=== PATIENT | male | born 1955 | race Caucasian/White ===

== ENCOUNTER 2017-05-28 10:07 | Outpatient (CLI) | payer BC ==
[2017-05-28 10:59] LABS: Anion Gap 12 mmol/L (10-20); BUN (Urea Nitrogen) 15 mg/dL (8.4-25.7); Calc. Creatinine Clearance 0 mL/min (70-130); Carbon Dioxide 29 mmol/L (23-31); Chloride 102 mmol/L (98-107); Estimated GFR-MDRD 73; Glucose 90 mg/dL (80-115); Potassium 3.5 mmol/L (3.5-5.1); Sodium 139 mmol/L (136-145)
[2017-05-28 11:13] LABS: Bilirubin Negative (Negative); Blood, Urine Negative (Negative); Clarity CLEAR (Clear); Glucose, Urine (Dipstick) Negative (Negative); Leukocyte Negative (Negative); Nitrite Negative (Negative); Protein, Urine (Dipstick) Negative (Neg-Trace); Specific Gravity, Urine 1.015 (1.002-1.036); Urobilinogen 0.2 mg/dL (0.2-1.0)
--- NOTE | 2017-05-28 11:17 | RAD ---
ABDOMEN ONE VIEW: History: Benign prostatic hyperplasia with urinary tract symptoms. Comparison: 01-21-17 FINDINGS: Right upper quadrant and right lower quadrant surgical clips. No dilated air filled loops of large or small bowel. There is a punctate calcification projecting over the left and right superior renal pelvis. IMPRESSION: Punctate bilateral renal calculi. POS: [facility]
[2017-05-28 11:18] LABS: Bacteria/HPF None Seen HPF (None Seen); Hyaline Casts/LPF 0-3 HYALINE CAST LPF (0-3 Hyaline); RBC/HPF None Seen HPF (0-3); Squamous Epithelial None Seen HPF (0-3); WBC/HPF None Seen HPF (0-3)
== END 2017-05-28 10:08 | disposition home or self-care (01) ==
LOC: RAD 10:07
PROVIDERS: ATTEND Urology
DX: N40.1 Benign prostatic hyperplasia with lower urinary tract symptoms (principal); N20.0 Calculus of kidney
CPT/HCPCS: 36415; 74018; 80048; 81001; 87086

== ENCOUNTER 2018-07-08 09:39 | Outpatient (CLI) | payer BC ==
--- NOTE | 2018-07-08 10:08 | RAD ---
KUB: Comparison: 05-28-17 History: Renal calculus. FINDINGS: Single view of the abdomen shows a nonspecific, nonobstructed bowel gas pattern. No calcifications ar e seen over the right renal shadow but evaluation is limited secondary to overlying stool. There may be small calcifications projecting over the midportion of the left kidney measuring up to 3 mm in siz e. No calcifications are seen along the course of the ureters. IMPRESSION: Possible small left renal calcifications. POS: [facility]
[2018-07-08 10:29] LABS: Bilirubin Negative (Negative); Blood, Urine Negative (Negative); Clarity CLEAR (Clear); Glucose, Urine (Dipstick) Negative (Negative); Leukocyte Negative (Negative); Nitrite Negative (Negative); Protein, Urine (Dipstick) Negative (Neg-Trace); Specific Gravity, Urine 1.014 (1.002-1.036)
[2018-07-08 10:38] LABS: Bacteria/HPF None Seen HPF (None Seen); Hyaline Casts/LPF 0-3 HYALINE CAST LPF (0-3 Hyaline); RBC/HPF 0-3 HPF (0-3); Squamous Epithelial None Seen HPF (0-3); WBC/HPF None Seen HPF (0-3)
[2018-07-08 10:47] LABS: Anion Gap 13 mmol/L (10-20); BUN (Urea Nitrogen) 16 mg/dL (8.4-25.7); Calc. Creatinine Clearance 0 mL/min (70-130); Calcium 9.8 mg/dL (7.8-10.44); Carbon Dioxide 28 mmol/L (23-31); Chloride 102 mmol/L (98-107); Estimated GFR-MDRD 61; Glucose 89 mg/dL (80-115); Potassium 3.6 mmol/L (3.5-5.1); Sodium 139 mmol/L (136-145)
== END 2018-07-08 09:40 | disposition home or self-care (01) ==
LOC: RAD 09:39
PROVIDERS: ATTEND Urology
DX: Z12.5 Encounter for screening for malignant neoplasm of prostate (principal); N20.0 Calculus of kidney; R35.0 Frequency of micturition
CPT/HCPCS: 74018; 80048; 81001; 87086

== ENCOUNTER 2019-04-21 10:47 | Outpatient (CLI) | payer BC ==
[2019-04-21 12:42] LABS: Anion Gap 13 mmol/L (10-20); BUN (Urea Nitrogen) 15 mg/dL (8.4-25.7); Calc. Creatinine Clearance 0 mL/min (70-130); Calcium 9.4 mg/dL (7.8-10.44); Carbon Dioxide 28 mmol/L (23-31); Chloride 102 mmol/L (98-107); Estimated GFR-MDRD 73; Glucose 103 mg/dL (80-115); Potassium 3.9 mmol/L (3.5-5.1); Sodium 139 mmol/L (136-145)
[2019-04-21 12:43] LABS: Bilirubin Negative (Negative); Blood, Urine Negative (Negative); Clarity Clear (Clear); Glucose, Urine (Dipstick) Normal (Negative); Leukocyte Negative Leu/uL (Negative); Nitrite Negative (Negative); Protein, Urine (Dipstick) Negative (Neg-Trace); Urobilinogen Normal mg/dL (Less than 2)
--- NOTE | 2019-04-21 13:09 | RAD ---
KUB INDICATION: Renal calculus COMPARISON: July 08, 2018 FINDINGS: Bowel gas: Nonspecific but without overt appearance of obstruction. Lung bases: Clear. Additional findings: Left nephrolithiasis is stable. No suspicious calcification is seen along the ex pected course of the renal collecting system. Surgical clips are again seen within the right lower quadrant and right upper quadrant of the abdomen. There is a mild amount retained stool within the co sung. Retained stool slightly limits evaluation of the right renal shadow. Osseous structures: No acute osseous abnormality is demonstrated. IMPRESSION: 1. Stable left nephrolithiasis.
[2019-04-21 15:46] LABS: Bacteria/HPF None Seen HPF (None Seen); Bilirubin Negative (Negative); Blood, Urine Negative (Negative); Clarity Clear (Clear); Glucose, Urine (Dipstick) Normal (Negative); Leukocyte Negative Leu/uL (Negative); Nitrite Negative (Negative); Protein, Urine (Dipstick) Negative (Neg-Trace); RBC/HPF 0-3 HPF (0-3); Squamous Epithelial None Seen HPF (0-3); Urobilinogen Normal mg/dL (Less than 2); WBC/HPF 0-3 HPF (0-3)
[2019-04-21 15:48] LABS: Urine Culture Reflex No No
== END 2019-04-21 10:48 | disposition home or self-care (01) ==
LOC: RAD 10:47
PROVIDERS: ATTEND Urology
DX: Z12.5 Encounter for screening for malignant neoplasm of prostate (principal); N20.0 Calculus of kidney; R35.0 Frequency of micturition; N40.1 Benign prostatic hyperplasia with lower urinary tract symptoms
CPT/HCPCS: 36415; 74018; 80048; 81001; 81003; G0103

== ENCOUNTER 2020-02-23 09:05 | Outpatient (CLI) | payer OTHER ==
--- NOTE | 2020-02-23 10:48 | MRI ---
MRI OF RIGHT KNEE PERFORMED WITHOUT CONTRAST ENHANCEMENT: HISTORY: Right knee pain. FINDINGS: The anterior as well as posterior cruciate ligaments are intact. The lateral meniscus has a normal shape and appearance. There is a posterior horn medial meniscus te ar which appears to have more of a SLAP-type orientation. The medial as well as lateral collateral ligaments and iliotibial band regions are unremarkable. 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 The medial and lateral patellar retinaculum and quadriceps an patellar tendons are normal. IMPRESSION: 1. Posterior horn medial meniscus tear. Associated articular cartilage loss of the medial femoral c ondyles noted. 2. 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 POS: [facility]
== END 2020-02-23 09:06 | disposition home or self-care (01) ==
LOC: BICMRI 09:05
PROVIDERS: ATTEND Orthopaedic Surgery
DX: S83.241A Other tear of medial meniscus, current injury, right knee, initial encounter (principal); M25.561 Pain in right knee; M23.91 Unspecified internal derangement of right knee; M17.11 Unilateral primary osteoarthritis, right knee

== ENCOUNTER 2020-05-25 09:19 | Outpatient (CLI) | payer OTHER ==
--- NOTE | 2020-05-25 11:29 | RAD ---
EXAM: XR Abdomen 1 View/KUB PROVIDED CLINICAL HISTORY: Nephrolithiasis COMPARISON: 04/21/2019 FINDINGS: The abdominal bowel gas pattern is nonspecific. Surgical clips overlie the right abdomen. The left re nal shadow is predominantly obscured by bowel content. There is a tiny radiodensity projecting cranial to the left L4 transverse process. The osseous structures demonstrate no acute findings. IMPRESSION: Tiny radiodensity overlying the left paravertebral region. Correlate with concerns for ureteral calcu judith.
== END 2020-05-25 09:20 | disposition home or self-care (01) ==
LOC: RAD 09:19
PROVIDERS: ATTEND Urology
DX: N20.0 Calculus of kidney (principal)
CPT/HCPCS: 74018

== ENCOUNTER 2020-06-14 14:01 | Outpatient (CLI) | payer OTHER ==
--- NOTE | 2020-06-14 14:55 | CT ---
Exam: Abdomen CT without contrast Pelvic CT without contrast HISTORY: Previous appendectomy and cholecystectomy. Flank pain. COMPARISON: 03/13/2016 FINDINGS: Abdomen CT: Lung bases:Clear Heart size: Normal heart size Aorta: Normal caliber aorta. No periaortic fat stranding Solid organs: Limited evaluation by the absence of IV contrast. Grossly no solid organ abnormality Lymph nodes: No gastrohepatic, retrocrural or periportal lymphadenopathy Gallbladder: Surgically absent Mesentery: No mass, lymphadenopathy, free air or free fluid Kidneys: Bilateral nonobstructing 1 to 2 mm intrarenal calculi. Bilaterally no obstructive uropathy Alimentary canal: Limited evaluation of the alimentary canal by the lack of contrast. No bowel obstru ction. Normal ileocecal junction. Appendix is surgically absent. Scattered fecal material in a nondistended, nondilated colon. Extensive diverticula in the left hemicolon. There is evidence of mil d diverticulitis involving the mid sigmoid colon (axial image 57, series 2 and sagittal image 70, series 5) CT PELVIS: No mass, adenopathy, free air or free fluid. Mild enlarged prostate gland Urinary bladder: Unremarkable. Osseous structures: No lytic or blastic lesions IMPRESSION: 1. Nonobstructing bilateral intrarenal calculi. No evidence of obstructive uropathy. 2. Mild inflammatory changes involving the mid sigmoid colon. Possibility of diverticulitis is raised . Results of study conveyed to Dr. Coreas via [employer] 06/14/2020 at 2:54 PM Code CR Transcribed Date/Time: 06/14/2020 3:33 PM
== END 2020-06-14 14:02 | disposition home or self-care (01) ==
LOC: BICCT 14:01
PROVIDERS: ATTEND Urology
DX: N20.0 Calculus of kidney (principal); K52.9 Noninfective gastroenteritis and colitis, unspecified
CPT/HCPCS: 74176

== ENCOUNTER 2020-10-22 07:32 | Outpatient (CLI) | payer OTHER | END 2020-10-22 07:33 | disposition home or self-care (01) | LOC: RAD 07:32 | PROVIDERS: ATTEND Urology | DX: N20.0 Calculus of kidney (principal); Z12.5 Encounter for screening for malignant neoplasm of prostate; N40.1 Benign prostatic hyperplasia with lower urinary tract symptoms; R35.0 Frequency of micturition; N43.40 Spermatocele of epididymis, unspecified | CPT/HCPCS: 74018 ==

== ENCOUNTER 2021-05-09 07:35 | Outpatient (CLI) | payer MEDICARE, OTHER | END 2021-05-09 07:36 | disposition home or self-care (01) | LOC: TBSIIMAG 07:35 | PROVIDERS: ATTEND Orthopaedic Surgery | DX: M23.203 Derangement of unspecified medial meniscus due to old tear or injury, right knee (principal) ==

== ENCOUNTER 2021-07-22 12:09 | Outpatient (CLI) | payer MEDICARE, OTHER | END 2021-07-22 12:10 | disposition home or self-care (01) | LOC: LABBT 12:09 | PROVIDERS: ATTEND Orthopaedic Surgery | DX: Z01.818 Encounter for other preprocedural examination (principal); S83.241A Other tear of medial meniscus, current injury, right knee, initial encounter; E78.1 Pure hyperglyceridemia | CPT/HCPCS: 71046; 93005; 93010 ==

== ENCOUNTER 2021-09-23 09:01 | Outpatient (CLI) | payer MEDICARE, OTHER | END 2021-09-23 09:02 | disposition home or self-care (01) | LOC: SCSMRI 09:01 | PROVIDERS: ATTEND Orthopaedic Surgery | DX: M75.121 Complete rotator cuff tear or rupture of right shoulder, not specified as traumatic (principal) ==

== ENCOUNTER 2022-03-27 10:24 | Outpatient (CLI) | payer MEDICARE, OTHER ==
[2022-03-27 13:16] LABS: PTT 26.9 sec (22.0-33.0)
[2022-03-27 13:18] LABS: Anion Gap 15 mmol/L (10-20); BUN (Urea Nitrogen) 17 mg/dL (8.4-25.7); Calc. Creatinine Clearance 0 mL/min (70-130); Calcium 9.5 mg/dL (7.8-10.44); Carbon Dioxide 24 mmol/L (23-31); Chloride 105 mmol/L (98-107); Estimated GFR 87; Glucose 60 mg/dL (80-115); Hemoglobin 15.7 g/dL (13.5-17.5); Mean Corpuscular HGB CONC 35.5 g/dL (32.0-36.0); Mean Corpuscular Hemoglobin 32.2 pg (27.0-33.0); Mean Corpuscular Volume 90.8 fl (81.2-95.1); Mean Platelet Volume 10.6 fl (7.4-10.4); Platelet Count 286 10x3/uL (150-450); RBC Distribution Width 11.9 % (11.5-14.5); Red Blood Cell (RBC) Count 4.87 10x6/uL (4.32-5.72); Sodium 140 mmol/L (136-145); White Blood Cell (WBC) Count 6.8 10x3/uL (3.5-10.5)
[2022-03-27 13:22] LABS: Bilirubin Neg (Negative); Blood, Urine Negative (Negative); Clarity Clear (Clear); Glucose, Urine (Dipstick) Normal (Negative); Ketone, Urine Negative (Negative); Leukocyte Negative (Negative); Nitrite Negative (Negative); Protein, Urine (Dipstick) Negative (Neg-Trace); Specific Gravity, Urine 1.015 (1.005-1.030); Urobilinogen Normal mg/dL (Less than 2)
[2022-03-27 13:39] LABS: Bacteria/HPF Rare-Few HPF (None Seen); RBC/HPF 0-3 HPF (0-3); Squamous Epithelial None Seen HPF (0-3); WBC/HPF 0-3 HPF (0-3)
== END 2022-03-27 10:25 | disposition home or self-care (01) ==
LOC: LABBT 10:24
PROVIDERS: ATTEND Urology
DX: Z01.818 Encounter for other preprocedural examination (principal); Z12.5 Encounter for screening for malignant neoplasm of prostate; N20.0 Calculus of kidney; N40.1 Benign prostatic hyperplasia with lower urinary tract symptoms; R35.0 Frequency of micturition; N43.40 Spermatocele of epididymis, unspecified
CPT/HCPCS: 80048; 81001; 85027; 85610; 85730; 87077; 87086; 93005; 93010

== ENCOUNTER 2022-09-19 14:47 | Outpatient (CLI) | payer MEDICARE, OTHER | END 2022-09-19 14:48 | disposition home or self-care (01) | LOC: RAD 14:47 | PROVIDERS: ATTEND Urology | DX: N20.0 Calculus of kidney (principal); N28.89 Other specified disorders of kidney and ureter; Z90.49 Acquired absence of other specified parts of digestive tract | CPT/HCPCS: 74018; 80048; 81001; 87086; G0103; 36415 ==

== ENCOUNTER 2023-01-29 11:22 | Outpatient (CLI) | payer MEDICARE, OTHER | END 2023-01-29 11:23 | disposition home or self-care (01) | LOC: RAD 11:22 | PROVIDERS: ATTEND Urology | DX: N20.0 Calculus of kidney (principal) | CPT/HCPCS: 36415; 74018; 80048; 81001; 87086 ==

== ENCOUNTER 2024-09-08 15:40 | Outpatient (CLI) | payer MEDICARE, OTHER | END 2024-09-08 15:41 | disposition home or self-care (01) | LOC: BICRAD 15:40 | PROVIDERS: ATTEND Urology | DX: N20.0 Calculus of kidney (principal); R35.0 Frequency of micturition; Z12.5 Encounter for screening for malignant neoplasm of prostate; N40.1 Benign prostatic hyperplasia with lower urinary tract symptoms | CPT/HCPCS: 74018; 80048; 81001; 87086; G0103; 36415 ==